=== PATIENT | female | born 1970 ===

== ENCOUNTER 2021-09-14 15:52 | Emergency (ER) | payer SELFPAY ==
[~2021-09-14] VITALS: Ht 154.9 cm; Wt 90.7 kg
[2021-09-14 19:11] VITALS: BP 153/56
== END 2021-09-14 19:52 | disposition home or self-care (01) ==
LOC: ER 15:52
DX: S00.511A Abrasion of lip, initial encounter (principal); E66.9 Obesity, unspecified; Z68.37 Body mass index [BMI] 37.0-37.9, adult; Y04.8XXA Assault by other bodily force, initial encounter; Y93.89 Activity, other specified; Y92.89 Other specified places as the place of occurrence of the external cause; Y99.8 Other external cause status
CPT/HCPCS: 70450; 70486